=== PATIENT | female | born 1960 | race Caucasian/White ===

== ENCOUNTER 2019-06-08 05:08 | Emergency (ER) | payer OTHER ==
[~2019-06-08] VITALS: Ht 170.2 cm; Wt 72.6 kg
[~2019-06-08 05:08] MED LIST: ALBUTEROL SULFAT4 MG INH; COMBIVENT RESPIM4 GM IH; LEVAQUIN500 MG PO; ZOFRAN8 MG PO
--- OUTSIDE RECORDS SUMMARY | 2019-06-08 05:13 | XMS REPORT ---
Author Author [facility] Address Unknown Phone Unavailable Care Team Providers Care Informatics Analyst Name Role Phone Debbie GARCIA Unavailable Unavailable Problems This patient has no known problems. Allergies, Adverse Reactions, Alerts This patient has no known allergies or adverse reactions. Medications This patient has no known medications. Results Test Description Test Time Test Comments Text Results Atomic Results Result Comments CHEST SINGLE (PORTABLE) [place] [address] Patient Name: AMANUEL JJ MR #: [id number] : 1960 Age/Sex: 57/F Req #: [id number] Adm Physician: Ordered by: PAOLA GARCIA MD Report #: [id number] Location: ER Room/Bed: Procedure: [id number] DX/CHEST SINGLE (PORTABLE) Exam Date: 04/25/17 Exam Time: 1934 REPORT STATUS: Signed A single frontal view of the chest. HISTORY: Chest pain COMPARISON: Chest radiograph August 11, 2016 DISCUSSION: Portable technique, limits sensitivity of the exam. Tubes/Lines: None Lungs and pleura: The lungs appear well inflated. No evidence of a consolidative pneumonia or pulmonary alveolar edema. No definite pleural effusion or pneumothorax is identified. Heart and mediastinum: The cardiomediastinal silhouette appears unremarkable. Bones: No acute osseous lesion is identified, given this limited exam. IMPRESSION: 1. No acute radiographic abnormality. 2. No significant interval change. Signed by: Dr. Milind Brown M.D. on 04/25/2017 7:47 PM Dictated By: MILIND BROWN DO 46 Transcribed By: MIGNON on 04/25/171946 COPY TO: PAOLA GARCIA MD US GALLBLADDER [place] [address] Patient Name: AMANUEL JJ MR #: [id number] : 1960 Age/Sex: 57/F Req #: [id number] Adm Physician: Ordered by: LACIE MCKEON MD Report #: [id number] Location: ER Room/Bed: Procedure: [id number] US/US GALLBLADDER Exam Date: Exam Time: REPORT STATUS: Signed EXAM: Right Upper Quadrant Ultrasound INDICATION: Upper abdominal pain, right upper quadrant pain COMPARISON: Gallbladder ultrasound on September [address] abdomen and pelvis in 08/2016 TECHNIQUE: Transverse and longitudinal images of the right upper abdomen were obtained. FINDINGS: Liver: Size: 14.1 cm in the right midclavicular line, normal Appearance: Normal echogenicity, smooth contour Mass: No focal masses Gallbladder: Stones/Sludge: Small amount of sludge. Wall: 0.2 cm Appearance: The gallbladder is contracted. Sonographic Dickinson's Sign: Positive Bile Ducts: Intrahepatic Ducts: No dilatation Extrahepatic Ducts: Common bile duct measures 0.3 cm, no dilatation Pancreas: Visualized portions of the pancreatic head, neck and proximal body are normal. Kidneys: Length: Right 10.8 cm Echogenicity: Normal Collecting System: No hydronephrosis Stone: None Cyst/Mass: None Vessels: Aorta: Visualized portions are normal Inferior Vena Cava: Visualized portions are normal Main Portal Vein: 0.9 cm, normal size with hepatopetal flow. Free Fluid: No ascites or pleural effusion IMPRESSION: 1. Contracted gallbladder, no evidence of stones, pericholecystic fluid or abnormal abdominal fluid. 2. Positive Dickinson's sign is not significant in the absence of gallstones Signed by: Dr. Nilson Tafoya M.D. on 04/25/2017 10:57 PM Dictated By: NILSON AYALA MD 56 Transcribed By: MIGNON on 04/25/172256 COPY TO: LACIE MCKEON MD
[2019-06-08] MEDS ORDERED: ALBUTEROL SULF 0.083% NEB SOLN 3 ML NEB NEB STA (05:19)
[2019-06-08] MEDS ORDERED: METHYLPREDNISOLONE SOD SUCC 125 MG/2ML VIAL ONE (05:25)
[2019-06-08] MEDS ORDERED: IPRATROPIUM BROMIDE 0.02% 2.5 ML NEB NEB ONE (05:30)
[2019-06-08] MEDS ORDERED: METHYLPREDNISOLONE SOD SUCC 125 MG/2ML VIAL IM ONE (05:30)
[2019-06-08] MEDS ORDERED: ALBUTEROL SULF 0.083% NEB SOLN 3 ML NEB ONE (05:31)
[2019-06-08] MEDS ORDERED: IPRATROPIUM BROMIDE 0.02% 2.5 ML NEB ONE (05:31)
--- NOTE | 2019-06-08 06:44 | Diagnostic Imaging Report ---
EXAMINATION: CHEST 2 VIEWS INDICATION: Cough. COMPARISON: Report from chest radiograph dated 04/25/2017, although the images are not available for review. FINDINGS: TUBES and LINES: None. LUNGS: Lungs are well inflated. There is biapical pleural-parenchymal opacity. Asymmetric high density opacity in the medial aspect of the right upper lung. There is bronchial wall thickening. No evidence of lobar pneumonia. PLEURA: No pleural effusion or pneumothorax. HEART AND MEDIASTINUM: The cardiomediastinal silhouette is unremarkable. There are atherosclerotic calcifications within the aorta. BONES AND SOFT TISSUES: No acute osseous abnormality. UPPER ABDOMEN: No free air under the diaphragm. IMPRESSION: Bronchial wall thickening, suggestive of bronchitis in the setting of cough. No evidence of lobar pneumonia. High density opacity in the medial aspect of the right upper lung likely corresponds to costoclavicular junction. Prior studies are not available for review. Suggest follow-up chest radiograph in 3-6 months to assess for stability. Signed by: Dr. Minnie Wells MD on 06/08/2019 6:41 AM
== END 2019-06-08 06:25 | disposition home or self-care (01) ==
LOC: ER 05:08
DX: J20.9 Acute bronchitis, unspecified (principal); K21.9 Gastro-esophageal reflux disease without esophagitis; E78.00 Pure hypercholesterolemia, unspecified
CPT/HCPCS: 71046; 87400; 94640; 96372; 99283; J2930

== ENCOUNTER 2019-09-16 20:16 | Inpatient (IN) | payer OTHER ==
[~2019-09-16] VITALS: Ht 170.2 cm; Wt 77.1 kg
[~2019-09-16 20:16] MED LIST changes: +ALBUTEROL0.63 MG/3 NEB
[2019-09-16] MEDS ORDERED: AZITHROMYCIN 500MG/NS 250 ML 250 ML IV STA ×2 (21:29)
[2019-09-16] MEDS ORDERED: CEFTRIAXONE SOD 1 GM/NS 50 ML 50 ML IV ONE (21:30)
[2019-09-16] MEDS ORDERED: SODIUM CHLORIDE 0.9% 1000ML 1,000 ML IV STA ×2 (21:43)
[2019-09-16] MEDS ORDERED: SODIUM CHLORIDE 0.9% 1000ML 2,000 ML ONE (21:50)
[2019-09-16 21:59] LABS: BASOPHILS # (AUTO) 0.1 (0.0-0.1); BASOPHILS % 0.4 % (0.0-1.0); EOSINOPHILS % 0.2 % (0.0-6.0); HEMATOCRIT 44.4 % (34.2-44.1); HEMOGLOBIN 14.5 g/dL (12.0-16.0); LYMPHOCYTES # (AUTO) 0.9 (1.0-3.2); LYMPHOCYTES % 7.4 % (18.0-39.1); MEAN CORPUSCULAR HEMOGLOBIN 29.7 pg (28-32); MEAN CORPUSCULAR HGB CONC 32.7 g/dL (31-35); MEAN CORPUSCULAR VOLUME 90.8 fL (81-99); MONOCYTES # (AUTO) 1.4 (0.2-0.8); MONOCYTES % 10.7 % (4.4-11.3); NEUTROPHILS # (AUTO) 10.3 (2.1-6.9); NEUTROPHILS % 80.8 % (38.7-80.0); PLATELET COUNT 264 x10e3/uL (140-360); RED BLOOD COUNT 4.89 x10e6/uL (3.6-5.1); RED CELL DISTRIBUTION WIDTH 13.3 % (11.7-14.4)
[2019-09-16 22:16] LABS: ALANINE AMINOTRANSFERASE 11 IU/L (0-55); ALBUMIN 3.8 g/dL (3.5-5.0); ALBUMIN/GLOBULIN RATIO 1.4 (0.8-2.0); ALKALINE PHOSPHATASE 75 IU/L (40-150); BLOOD UREA NITROGEN 9 mg/dL (7-26); BUN/CREATININE RATIO 14 (6-25); CALCIUM 8.9 mg/dL (8.4-10.2); CARBON DIOXIDE 27 mmol/L (22-29); CHLORIDE 99 mmol/L (98-107); CREATININE, SERUM 0.66 mg/dL (0.57-1.11); EST GLOMERULAR FILTRATION RATE > 60 ML/MIN (60-); GLUCOSE 116 mg/dL (74-118); SODIUM 137 mmol/L (136-145)
[2019-09-16] MEDS ORDERED: ONDANSETRON HCL INJ 2MG/ML 2ML 2 MG/ML VIAL IV STA (23:42)
[2019-09-16] MEDS ORDERED: ACETAMINOPHEN 325 MG TAB PO ONE (23:45)
[2019-09-16] MEDS ORDERED: ALBUTEROL/IPRATROPIUM 3 ML NEB NEB ONE (23:45)
[2019-09-16] MEDS ORDERED: ONDANSETRON HCL INJ 2MG/ML 2ML 2 MG/ML VIAL ONE (23:51)
[2019-09-16] MEDS ORDERED: ACETAMINOPHEN 325 MG TAB ONE (23:51)
[2019-09-17 00:02] LABS: CREATINE KINASE 46 IU/L (29-168)
--- NOTE | 2019-09-17 00:20 | Diagnostic Imaging Report ---
EXAMINATION: CHEST 2 VIEWS INDICATION: Hypoxia COMPARISON: Abdominal CT 08/20/2019, chest x-ray 08/08/2018 FINDINGS: TUBES and LINES: None. LUNGS/PLEURA: Hyperinflated lungs. Prominent interstitial lung markings predominantly in the mid to upper lungs. Syed B lines. Prominent pulmonary vasculature. Mild central bronchial wall thickening. Right apical pleural retraction. Biapical scarring. No pleural effusion or pneumothorax. HEART AND MEDIASTINUM: The cardiomediastinal silhouette is unremarkable. There are atherosclerotic calcifications within the aorta. BONES AND SOFT TISSUES: No acute osseous lesion. Soft tissues are unremarkable. UPPER ABDOMEN: No free air under the diaphragm. IMPRESSION: Findings of pulmonary emphysema and bronchitis. Superimposed pulmonary interstitial edema or infection is possible. Right apical pleural retraction could be due to scarring, although an apical malignancy causes finding. Recommend nonemergent chest CT for further evaluation. Signed by: Mamadou Carreno DO on 09/17/2019 12:18 AM
[2019-09-17] MEDS ORDERED: ALBUTEROL/IPRATROPIUM 3 ML NEB NEB PRN (02:15)
[2019-09-17 03:52] LABS: B-TYPE NATRIURETIC PEPTIDE2 28.2 pg/mL (0-100)
[2019-09-17] MEDS: ONDANSETRON HCL INJ 2MG/ML 2ML 2 MG/ML VIAL IV PRN (07:55)
[2019-09-17] MEDS: ACETAMINOPHEN 325 MG TAB PO PRN ×2 (09:51→21:48)
[2019-09-17 11:17] LABS: BASOPHILS % 0.3 % (0.0-1.0); EOSINOPHILS # (AUTO) 0.1 (0.0-0.4); HEMATOCRIT 39.6 % (34.2-44.1); HEMOGLOBIN 12.6 g/dL (12.0-16.0); LYMPHOCYTES # (AUTO) 1.3 (1.0-3.2); LYMPHOCYTES % 10.4 % (18.0-39.1); MEAN CORPUSCULAR HEMOGLOBIN 29.2 pg (28-32); MEAN CORPUSCULAR HGB CONC 31.8 g/dL (31-35); MEAN CORPUSCULAR VOLUME 91.7 fL (81-99); MONOCYTES # (AUTO) 1.1 (0.2-0.8); MONOCYTES % 9.5 % (4.4-11.3); NEUTROPHILS # (AUTO) 9.4 (2.1-6.9); PLATELET COUNT 242 x10e3/uL (140-360); RED BLOOD COUNT 4.32 x10e6/uL (3.6-5.1); RED CELL DISTRIBUTION WIDTH 13.2 % (11.7-14.4)
[2019-09-17] MEDS: METHYLPREDNISOLONE SOD SUCC 40 MG/ML VIAL 1ML IV SCH ×2 (13:24→21:25)
[2019-09-17] MEDS: AZITHROMYCIN 250 MG TAB PO SCH (13:24)
--- NOTE | 2019-09-17 13:40 | Diagnostic Imaging Report ---
EXAMINATION: CHEST SINGLE (PORTABLE) INDICATION: Shortness of breath COMPARISON: Chest radiograph of 09/16/2019 FINDINGS: LINES/TUBES:None LUNGS:The lungs are mildly hyperinflated. No focal consolidation. Mild pulmonary interstitial edema. Mild biapical pleural parenchymal thickening/scarring. PLEURA:No pleural effusion or pneumothorax. MEDIASTINUM:The cardiomediastinal silhouette appears normal in size and shape. Atherosclerotic calcifications of the thoracic aorta. BONES/SOFT TISSUES:No acute osseous injury. ABDOMEN:No free air under the diaphragm. IMPRESSION: Mildly hyperinflated lungs. Mild pulmonary interstitial edema. No focal pneumonia. Signed by: Robinson Man MD on 09/17/2019 1:38 PM
[2019-09-17] MEDS: ALBUTEROL/IPRATROPIUM 3 ML NEB NEB SCH ×3 (15:13→23:50)
--- NOTE | 2019-09-17 16:24 | NUR ---
Received patient via stretcher from ER. AAOX4 to time, person, place, situation. Respirations even and unlabored. O2 2L NC. Denies pain. Oriented patient to room. Instructed to use call light for assistance. Voiced understanding. Will continue to monitor.
[2019-09-17 16:38] VITALS: BP 108/66
[2019-09-17 16:43] VITALS: BP 108/66
[2019-09-17 16:51] VITALS: BP 108/66
[2019-09-17] MEDS ORDERED: ALBUTEROL0.63 MG/3 INH (16:55)
--- NOTE | 2019-09-17 18:28 | History and Physical ---
PRIMARY CARE PHYSICIAN: [facility]. CHIEF COMPLAINT: Shortness of breath and cough with fever and chills. HISTORY OF PRESENT ILLNESS: This is a 59-year-old female with past medical history of asthma and bronchitis, presented to the ER with four days history of fever, cough, generalized weakness, dyspnea. She reported went to the Urgent Care four days ago and was given steroids, antibiotics and breathing treatments to take at home, but the pharmacy she went to did not have the antibiotics so only took the steroids and neb treatments with no improvement of her symptoms. She reports was diagnosed with bronchitis and given those medications. But continued to worsen so presented to the ER last night for further evaluation. She reports is feeling a little bit better. We will admit the patient for further management of her respiratory distress. PAST MEDICAL HISTORY: 1. Childhood asthma. 2. Frequent bronchitis. PAST SURGICAL HISTORY: She reports thyroid history, BTL and left knee meniscus repair. FAMILY MEDICAL HISTORY: She reports mother had COPD and father had heart problems. SOCIAL HISTORY: She reports smoking 6-7 cigarettes a day. Denies any illicit drug use and drinks alcohol a few times per week. 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 ALLERGIES: SHE IS ALLERGIC TO TETANUS VACCINE AND TOXOID. REVIEW OF SYSTEMS: GENERAL: Fatigue and fever. HEENT: No head trauma. LUNGS: Decreased breath sounds. No wheezing. CARDIOVASCULAR: No chest pain. GI: No nausea or vomiting. NEURO: No dizziness. MUSCULOSKELETAL: Generalized weakness. SKIN: No rash. PHYSICAL EXAMINATION: VITAL SIGNS: Temperature 98.3, pulse is 77, respirations 12, blood pressure 117/66, pulse ox is 98% on 2 L of oxygen. GENERAL: Fatigue and generalized weakness. HEENT: Normocephalic, atraumatic. NECK: Supple. LUNGS: With wheezing and decreased breath sounds. CARDIOVASCULAR: Regular rate and rhythm. GI: Soft and nontender. NEUROLOGIC: Alert, awake, and oriented x3. MUSCULOSKELETAL: Moves all extremities. No edema. SKIN: Dry. PSYCH: Calm. LABORATORY DATA: WBC 12.7, hemoglobin 14.5, hematocrit 44.4, and platelet is 64. Sodium 137, potassium 4.0, creatinine 0.66, glucose 116, lactic acid 1.4, AST 15, ALT 11, creatine kinase is 46, troponin 0.001. BNP is 28.2. Influenza A and B negative. MICROBIOLOGY: Blood cultures pending. IMAGING: Chest x-ray shows pulmonary emphysema and bronchitis, superimposed pulmonary interstitial edema or infection is possible. IMPRESSION: 1. Acute respiratory failure, present on admission. Likely due to bronchitis. She was given Rocephin and azithromycin in the ER. We will continue with azithromycin daily, and Solu-Medrol 40 mg p.o. t.i.d. and neb treatments. Chest x-ray noted. We will repeat chest x-ray today. 2. History of asthma. We will continue to monitor. Nebs q.4 hours. 3. Tobacco use. Discussed cessation. Has not smoked in 1 week. 4. Deep vein thrombosis prophylaxis. Sequential compression devices. PLAN: Continue with current treatment. Steroids, neb treatments, and antibiotics. We will monitor overnight and assess tomorrow. Dictated by OLIVIA Ni Max Solorzano MD MY/MODL /[id number]
--- NOTE | 2019-09-17 19:27 | NUR ---
Report given to oncoming nurse of patient's status. Resting in bed. NO s/s of acute distress noted. Side rails upx2, call light within reach.
--- NOTE | 2019-09-17 19:32 | NUR ---
RECEIVED PT IN BED AOX3 .RESPIRATIONS ARE EVEN AND UNLABORED .DENIES PAIN CALL LIGHT WITH IN REACH.CONTINUE TO MONITOR
[2019-09-17 19:59] VITALS: BP 108/66
[2019-09-17] MEDS ORDERED: FUROSEMIDE INJ 10 MG/ML 4 ML VIAL IV NR (20:15)
[2019-09-17 20:50] VITALS: BP 108/58
[2019-09-17] MEDS ORDERED: INFLUENZA VIRUS VAC SPLIT INJ 0.5 ML SYR IM NR (21:00)
[2019-09-17] MEDS ORDERED: PNEUMOCOCCAL VACCINE POLYVALENT 23 MCG/0.5 ML VIAL IM NR (21:00)
[2019-09-18] VITALS (8 sets, daily range): BP systolic 86–113; BP diastolic 50–58
[2019-09-18] MEDS: ALBUTEROL/IPRATROPIUM 3 ML NEB NEB SCH ×6 (03:40→23:40)
[2019-09-18] MEDS: METHYLPREDNISOLONE SOD SUCC 40 MG/ML VIAL 1ML IV SCH ×3 (06:00→20:58)
[2019-09-18] MEDS: ACETAMINOPHEN 325 MG TAB PO PRN (06:08)
--- NOTE | 2019-09-18 06:23 | NUR ---
PT C/O HEADACHE AND MEDICATED WITH TYLENOL ..CALL LIGHT WITH IN REACH .CONTINUE TO MONITOR
--- NOTE | 2019-09-18 07:11 | NUR ---
BEDSIDE REPORT GIVEN TO THE ONCOMING NURSE
[2019-09-18] MEDS: AZITHROMYCIN 250 MG TAB PO SCH (10:00)
[2019-09-18] MEDS: ONDANSETRON HCL INJ 2MG/ML 2ML 2 MG/ML VIAL IV PRN (10:41)
--- NOTE | 2019-09-18 15:10 | NUR ---
Visit made by the Spiritual Care Department Pastoral Visitor, Aysha Varela. PV provided pastoral presence, prayer, hospitality, and supportive listening. Pastoral Visitor informed pt/family of the scope of [employer] Teacher Services and availability. GEORGIA COLLAZO [employer] Spiritual Care Department O: [phone] Pager: [phone] ([phone] number calling from)
[2019-09-18] MEDS ORDERED: FUROSEMIDE INJ 10 MG/ML 4 ML VIAL IV ONE (17:30)
[2019-09-18] MEDS ORDERED: LEVOFLOXACIN 750MG/D5W 150ML 150 ML IV SCH (17:30)
--- NOTE | 2019-09-18 17:54 | Progress Note ---
DATE: 09/18/2019 CHIEF COMPLAINT: Shortness of breath and cough with fever and chills. SUBJECTIVE: The patient is complaining that her cough has worsened with green to brown sputum. Reports headache and shortness of breath with ambulation. She denies any chest pain, dizziness, abdominal pain, nausea, or vomiting. PHYSICAL EXAMINATION: VITAL SIGNS: Temperature is 96.7, pulse is 69, pulse 19, blood pressure 102/55, pulse ox is 95% on 2 L of nasal cannula. GENERAL: Fatigue. HEENT: Normocephalic, atraumatic. NECK: Supple. CARDIOVASCULAR: Regular rate and rhythm. LUNGS: Decreased breath sounds with some wheezing and crackles. ABDOMEN: Soft and nontender. NEUROLOGIC: Alert, awake, and oriented x3. MUSCULOSKELETAL: Moves all extremities. SKIN: Dry and intact. LABORATORY DATA: WBC 12.0, hemoglobin 12.6, hematocrit 39.6, and platelet is 242. Influenza A and B are negative. IMAGING DATA: Chest x-ray shows mildly hyperinflated lungs with mild pulmonary interstitial edema. No focal pneumonia. IMPRESSION: 1. Acute respiratory distress present on admission. Likely due to bronchitis versus chronic obstructive pulmonary disease. The patient was started on antibiotics and Solu-Medrol. Continue neb treatments. Chest x-ray shows some pulmonary edema. We will give Lasix x1 IV. Mucinex. Pending blood cultures. 2. History of asthma. We will continue nebs q.4 hours. 3. Headache. Likely due to constant cough. Tylenol as needed. 4. Tobacco use. Discussed cessation. Reports planning to quit and has stopped for one week. 5. Prophylaxis. Sequential compression devices for now. PLAN: Continue neb treatment, steroids, antibiotics. We will repeat chest x-ray to evaluate pulmonary edema. Anticipate discharge home tomorrow. Dictated by OLIVIA Ni Max Solorzano MD MY/MODL /[id number]
--- NOTE | 2019-09-18 18:35 | Diagnostic Imaging Report ---
EXAM: CHEST SINGLE (PORTABLE) DATE: 09/18/2019 4:31 PM INDICATION: ^pulm edema ^[id number] ^1700 COMPARISON: Chest x-ray, 09/17/2019 FINDINGS: Lines and tubes: None Heart size normal. No focal pulmonary opacity, pleural effusion or pneumothorax. Mild central pulmonary vascular prominence. Upper abdomen unremarkable. No acute bony abnormality. IMPRESSION: Mild central pulmonary vascular prominence. No pulmonary consolidation or pleural effusion. Signed by: Dr. Andrea Vital M.D. on 09/18/2019 6:32 PM
[2019-09-18] MEDS ORDERED: SODIUM CHLORIDE 0.9% 250ML 250 ML ONE (18:56)
[2019-09-18] MEDS: GUAIFENESIN 600 MG TAB PO PRN (19:17)
--- NOTE | 2019-09-18 19:45 | NUR ---
report given to oncoming nurse. Walking rounds complete
--- NOTE | 2019-09-18 20:26 | NUR ---
call to Dr. Solorzano, answering service left message.
[2019-09-19 00:53] VITALS: BP 114/56
[2019-09-19] MEDS: ALBUTEROL/IPRATROPIUM 3 ML NEB NEB SCH (03:52)
[2019-09-19 05:25] VITALS: BP 124/59
[2019-09-19] MEDS: GUAIFENESIN 600 MG TAB PO PRN (05:31)
--- NOTE | 2019-09-19 05:51 | NUR ---
TELE CALLED PT HAS AFIB WITH RVR CHECKED THE PT SAID SHE HAS NO HISTORY OF AFIB .PT CHEST HURT DUE TO THE COUGHING .PUT THE ORDER TO STAT EKG .CONTINUE TO MONITOR
--- NOTE | 2019-09-19 06:22 | NUR ---
EKG SHOWED AFIB WITH RVR .CALLED DR BEAR AND GIVEN ORDER TO CARDIZEM 10MG IV AND AND CONSULT DR ISAAC ,STOP NATHAN AND GIVE ATROVENT Q 4HRS ..MEDICATED WITH CARDIZEM 10 MG IV .CONTINUE TO MONITOR
[2019-09-19] MEDS ORDERED: DILTIAZEM HCL 5 MG/ML 5 ML VIAL IV ONE (06:45)
--- NOTE | 2019-09-19 07:28 | NUR ---
BEDSIDE REPORT GIVEN TO THE ONCOMING NURSE
[2019-09-19] MEDS: IPRATROPIUM BROMIDE 0.02% 2.5 ML NEB NEB SCH ×3 (07:35→16:05)
[2019-09-19 08:00] VITALS: BP 101/67
[2019-09-19 09:00] VITALS: BP 101/67
[2019-09-19] MEDS: METHYLPREDNISOLONE SOD SUCC 40 MG/ML VIAL 1ML IV SCH (09:08)
[2019-09-19] MEDS ORDERED: METOPROLOL SUCCINATE 25 MG TAB XL PO SCH (10:45)
--- NOTE | 2019-09-19 11:16 | Consultation ---
DATE OF CONSULTATION: 09/19/2019 Cardiology Consultation REASON FOR CONSULTATION: Atrial fibrillation. HISTORY OF PRESENT ILLNESS: A 59-year-old woman with a history of tobacco abuse, asthma, suspected COPD, presents with episodes of increased cough and shortness of breath. She is being treated for acute bronchitis. She is noted to have episodes of atrial fibrillation with rapid ventricular response with associated lightheadedness during event. She denies any exertional chest discomfort. She does report some mild pleuritic-type discomfort to chest with deep inspiration and coughing. She has dyspnea on exertion to strenuous activity at baseline. REVIEW OF SYSTEMS: A 12-system review negative except for as noted above. ALLERGIES: TO TETANUS TOXOID. PAST MEDICAL HISTORY: Asthma, suspected bronchitis. PAST SURGICAL HISTORY: Bilateral tubal ligation, left knee meniscus repair, and thyroid surgery. FAMILY HISTORY: COPD and heart disease. SOCIAL HISTORY: Smokes 6 to 7 cigarettes a day. Denies drug use. 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 Frequent exposure to secondhand smoking also. PHYSICAL EXAMINATION: VITAL SIGNS: Temperature 96.5, heart rate 96, respiratory rate 20, blood pressure 124/59, and O2 saturation 93% on nasal cannula 2 L/minute. GENERAL: In no acute distress. Alert. NECK: No JVD. CHEST: With scattered rhonchi. CARDIOVASCULAR: Irregularly regular rate and rhythm. Normal S1 and S2. No S3 or S4. Systolic ejection murmur 1/6. ABDOMEN: Soft. Bowel sounds positive. EXTREMITIES: No edema. Warm extremities. CARDIOVASCULAR MEDICATIONS: Reviewed. Status post diltiazem 10 mg IV x1 at 6 a.m. today and furosemide 40 mg IV x1 yesterday evening. STUDIES: Reviewed. White blood cells 12, hemoglobin 12.6, and platelets 242. Sodium 137, potassium 4, chloride 99, bicarbonate 27, BUN 9, creatinine 0.6, and glucose 116. Lactic acid 1.4. Total bilirubin 0.9. Calcium 8.9. AST 15, ALT 11, and alkaline phosphatase 75. CK 46, CK-MB 0.5, troponin I less than 0.001. BNP 28.2. Total protein 6.6 and albumin 3.2. Blood cultures, no growth after 48 hours. Chest x-ray with mild central pulmonary vascular prominence. No pulmonary consolidation or pleural effusion. Telemetry, atrial fibrillation with rapid ventricular response. ASSESSMENT AND PLAN: A 59-year-old woman presents with new onset atrial fibrillation, new diagnosis, history of tobacco abuse, suspected chronic bronchitis, however, with a history of childhood asthma. RECOMMEND: 1. Obtain echocardiogram. 2. Outpatient stress test at a later date. 3. Check A1c. 4. Check TSH. 5. Discussed indications, alternatives, risks, and benefits for thromboembolic risk prevention. The patient voices understanding of differences and lack of antidote with Eliquis and agrees to proceed with Eliquis for now. 6. Initiate low-dose beta-lolly. MD LILLIANA Berrios/MODJacob /[id number]
[2019-09-19 12:00] VITALS: BP 115/56
[2019-09-19] MEDS: APIXABAN 5 MG TABLET PO SCH ×2 (12:41→17:24)
[2019-09-19 16:00] VITALS: BP 117/57
[2019-09-19] MEDS ORDERED: IPRATROPIU0.2 MG/1 M NEB (16:57)
[2019-09-19] MEDS ORDERED: ELIQUIS5 MG PO (16:57)
[2019-09-19] MEDS ORDERED: TOPROL XL25 MG PO (16:57)
[2019-09-19] MEDS ORDERED: LEVAQUIN500 MG PO (16:59)
--- NOTE | 2019-09-19 18:35 | NUR ---
pt discharged home , pt and family was educated, on pt medications and was asked to follow up with her pcp, and inventory assistant, , iv site removed no swelling no redness to site.
--- NOTE | 2019-09-19 18:48 | Discharge Summary ---
PRIMARY CARE PHYSICIAN: [facility]. FINAL DIAGNOSES: 1. Acute respiratory failure on admission due to upper respiratory infection. 2. History of asthma. 3. Tobacco use. 4. New onset of atrial fibrillation with rapid ventricular response. CONSULTANTS: Dr. Chicas with Cardiology. PROCEDURES: Echocardiogram with EF of 55% to 60%. History per HPI. HOSPITAL COURSE: This is a 59-year-old female with past medical history of asthma and bronchitis, presented to the ER with complaints of fever, cough and generalized weakness with shortness of breath for four days. She was started on Solu-Medrol IV, antibiotics and neb treatments. Chest x-ray showed pulmonary emphysema and bronchitis with some edema with possible infection. During her stay, she was noted to have atrial fibrillation with RVR. Cardiology was consulted and she was started on low dose of metoprolol and Eliquis for CVA prophylaxis. Today, she is feeling much better, dyspnea improved. Afebrile, vital signs stable. We will discharge home on current medication to follow up with Cardiology in 1 week for stress test and with PCP in 1 to 2 weeks. PHYSICAL EXAMINATION: VITAL SIGNS: Temperature 97.1, pulse is 78, respirations 20, blood pressure 115/56, pulse ox is 92% on room air. GENERAL: No acute distress. HEENT: Normocephalic, atraumatic. NECK: Supple. CARDIOVASCULAR: Regular rate and rhythm. LUNGS: With decreased breath sounds. ABDOMEN: Soft and nontender. NEUROLOGIC: Alert, awake, and oriented x3. MUSCULOSKELETAL: Moves all extremities. SKIN: Dry. DISCHARGE MEDICATIONS: Please see medication reconciliation list. FOLLOWUP: Follow up with Cardiology and PCP in 1 to 2 weeks. TIME SPENT: Total time of discharge is 33 minutes. Dictated by OLIVIA Ni Max Solorzano MD MY/MODL /[id number] cc: [facility] Seen and examined on 09/19/19. Correction, the patient has acute respiratory distress instead of acute respiratory failure on admission. Agree with the findings and plan as documented by OLIVIA Almazan. [facility]
[2019-09-19] MEDS ORDERED: LEVOFLOXACIN 500 MG TAB PO SCH (20:00)
== END 2019-09-19 18:43 | disposition home or self-care (01) | DRG 189 ==
LOC: ER 20:16 → ERHOLD 09-17 02:30 → MED/SURG3 09-17 16:26
PROVIDERS: ADMIT Internal Medicine; ATTEND Internal Medicine
DX: J96.01 Acute respiratory failure with hypoxia (principal); J44.0 Chronic obstructive pulmonary disease with (acute) lower respiratory infection; J44.1 Chronic obstructive pulmonary disease with (acute) exacerbation; F17.210 Nicotine dependence, cigarettes, uncomplicated; Z88.7 Allergy status to serum and vaccine; Z82.5 Family history of asthma and other chronic lower respiratory diseases; Z82.49 Family history of ischemic heart disease and other diseases of the circulatory system; I48.0 Paroxysmal atrial fibrillation; J20.9 Acute bronchitis, unspecified
CPT/HCPCS: 36415; 71045; 71046; 80053; 82550; 82553; 83605; 83880; 84443; 84484; 85025; 87040; 87400; 93005; 93306; 94640; 99284; J0456; J0696; J1940; J2405; J2920; J7030; J7050